=== PATIENT | female | born 1980 | race Caucasian/White ===

== ENCOUNTER → 2018-11-29 | Outpatient (CLI) | payer OTHER | END | disposition home or self-care (01) | LOC: CARD 12:55 | PROVIDERS: ATTEND Internal Medicine | DX: J44.9 Chronic obstructive pulmonary disease, unspecified (principal); M34.9 Systemic sclerosis, unspecified | CPT/HCPCS: 94060; 94726; 94729 ==

== ENCOUNTER → 2018-12-12 | Outpatient (CLI) | payer OTHER | END | disposition home or self-care (01) | LOC: CFH 10:28 | PROVIDERS: ATTEND Family Medicine | DX: N64.52 Nipple discharge (principal) | CPT/HCPCS: 76641; 77066; G0279 ==

== ENCOUNTER 2018-12-14 06:49 | Outpatient (CLI) | payer OTHER | END 2018-12-14 23:59 | disposition home or self-care (01) | LOC: CFH 06:49 → EDSTATUS 07:00 → CFH 23:59 | PROVIDERS: ATTEND Internal Medicine | DX: I07.1 Rheumatic tricuspid insufficiency (principal) | CPT/HCPCS: 93306 ==

== ENCOUNTER → 2018-12-26 | Outpatient (CLI) | payer OTHER ==
[~2018-12-26] MED LIST: GADOBUTROL 7.5 MMOL/7.5 ML VIAL ONE
== END | disposition home or self-care (01) ==
LOC: CFH 12:53
PROVIDERS: ATTEND Family Medicine
DX: N60.02 Solitary cyst of left breast (principal); N60.01 Solitary cyst of right breast
CPT/HCPCS: 82565; A9585; C8908; C8937

== ENCOUNTER → 2019-07-09 | Outpatient (CLI) | payer OTHER ==
[~2019-07-09] MED LIST changes: +AMLO10TA4 PO; +AMLO10TA8 PO; +ASPI-496 PO; +CHOL100011 PO; +FOLIC ACID PO; +GABA600T7 PO; -GADOBUTROL 7.5 MMOL/7.5 ML VIAL ONE; +MINO100C61 PO; +MORP30CA15 PO; +MYCO500T PO; +OMEP-110 PO; +OXYC-307 PO; +SERT100T32 PO; +SILD10SU2 PO
== END | disposition home or self-care (01) ==
LOC: EDSTATUS 06-18 14:30 → CARD 12:47
PROVIDERS: ATTEND Internal Medicine
DX: M34.9 Systemic sclerosis, unspecified (principal); Z87.891 Personal history of nicotine dependence
CPT/HCPCS: 94060; 94726; 94729

== ENCOUNTER 2019-08-18 18:24 | Observation (INO) | payer OTHER ==
[~2019-08-18] VITALS: Ht 160 cm; Wt 71.5 kg
--- NOTE | 2019-08-18 19:03 | NUR ---
Pt amb w/ steady gait to room from lobby at this time.
[2019-08-18] MEDS ORDERED: SODIUM CHLORIDE FLUSH 10ML SYR IVF ONE (19:30)
[2019-08-18] MEDS ORDERED: SODIUM CHLORIDE 0.9% 1,000ML IVBOLUS ONE (19:30)
[2019-08-18 19:34] LABS: BASOPHILS # (AUTO) 0.02 x10^3/uL (0-0.1); BASOPHILS % (AUTO) 0 % (0-1); EOSINOPHILS # (AUTO) 0.05 x10^3/uL (0-0.4); EOSINOPHILS % (AUTO) 1 % (1-7); LYMPHOCYTES # (AUTO) 0.72 x10^3/uL (1-3.4); LYMPHOCYTES % (AUTO) 7 % (22-44); MD NO; MEAN CORPUSCULAR HEMOGLOBIN 28.6 pg (27.0-34.8); MEAN CORPUSCULAR HGB CONC 32.9 g/dL (32.4-35.8); MEAN PLATELET VOLUME 7.9 fL (7.4-10.4); MONOCYTES # (AUTO) 0.39 x10^3/uL (0.2-0.8); MONOCYTES % (AUTO) 4 % (2-9); NEUTROPHILS # (AUTO) 9.53 x10^3/uL (1.8-6.8); NEUTROPHILS % (AUTO) 89 % (42-75); PLATELET COUNT 247 x10^3/uL (130-400); RED BLOOD COUNT 3.63 x10^6/uL (3.82-5.3); RED CELL DISTRIBUTION WIDTH 14.5 % (9.6-15.2)
[2019-08-18 19:45] LABS: ALANINE AMINOTRANSFERASE 19 U/L (12-78); ANION GAP 6 mmol/L (5-15); CALCIUM 7.7 mg/dL (8.5-10.1); CHLORIDE 103 mmol/L (98-107)
[2019-08-18 19:49] LABS: RAPID INFLUENZA A Negative (Negative); RAPID INFLUENZA B Negative (Negative)
[2019-08-18 19:50] LABS: ALKALINE PHOSPHATASE 86 U/L (45-117); BILIRUBIN,TOTAL 0.3 mg/dL (0.2-1.0); TOTAL PROTEIN 8.5 g/dL (6.4-8.2)
[2019-08-18] MEDS ORDERED: PIPERACILLIN/TAZO/PMX 3.375GM 50 ML IV ONE (20:30)
[2019-08-18] MEDS ORDERED: ACETAMINOPHEN 500 MG TABLET PO ONE (20:30)
[2019-08-18 20:36] LABS: MICROSCOPIC NOT IND
[2019-08-18 20:39] LABS: CULTURE INDICATED? NO
--- NOTE | 2019-08-18 20:40 | NUR ---
R chest power port accessed w/ 20 G 1 in bee needle, utilizing sterile technique and Malorie rn at bedside for asssistance.
--- NOTE | 2019-08-18 20:41 | NUR ---
Patient presents to ER c/o fever and nausea since . Patient has a hx of scleroderma and receives IV IG infusions 5x/month. She received on on and developed a fever afterward. She states she usually gets a fever, but not as high as it has been for this many consecutive days. Patient is in NAD. She has a port which she states can be accessed today, if need be. Respirations even and unlabored.
[2019-08-18] MEDS ORDERED: ONDANSETRON 2MG/ML, 2ML IVPush ONE (21:00)
[2019-08-18] MEDS ORDERED: PIPERACILLIN/TAZO/PMX 3.375GM 50 ML ONE (21:07)
[2019-08-18] MEDS ORDERED: ACETAMINOPHEN 500 MG TABLET ONE (21:07)
[2019-08-18] MEDS ORDERED: ONDANSETRON 2MG/ML, 2ML ONE (21:07)
--- NOTE | 2019-08-18 21:50 | NUR ---
Report given to Charmaine. Patient to be transferred to room 484-2.
[2019-08-18 22:39] VITALS: BP 104/68
[2019-08-18] MEDS: SILDENAFIL 20 MG TABLET PO SCH (23:00)
[2019-08-18] MEDS ORDERED: hydrALAzine 20 MG/ML, 1ML IVPush PRN (23:00)
[2019-08-18] MEDS: ENOXAPARIN 40 MG/0.4 ML SQ SCH (23:23)
[2019-08-18] MEDS: MONTELUKAST 10 MG TABLET PO SCH (23:23)
[2019-08-18] MEDS: GABAPENTIN 400 MG CAPSULE PO SCH (23:23)
[2019-08-18] MEDS: FAMOTIDINE 20 MG TABLET PO SCH (23:48)
[2019-08-18] MEDS: POTASSIUM CHLORIDE 20 MEQ in LACTATED RINGERS 1,000 ML IV SCH (23:48)
[2019-08-18] MEDS: morphine SULFATE 15 MG TAB.IR PO PRN (23:49)
[2019-08-19] MEDS ORDERED: POTASSIUM CHLORIDE 20 MEQ TAB.ER.PRT PO ONE (00:30)
[2019-08-19] MEDS ORDERED: MAGNESIUM SULFATE/D5W 100 ML IVPB ONE (00:30)
[2019-08-19] MEDS: PIPERACILLIN/TAZO/PMX 3.375GM 50 ML IV SCH ×4 (02:40→20:47)
[2019-08-19] MEDS: AZITHROMYCIN 500 MG in SODIUM CHLORIDE 0.9% 250 ML IV SCH (03:23)
[2019-08-19 03:30] VITALS: BP 94/60
[2019-08-19] MEDS: morphine SULFATE 15 MG TAB.IR PO PRN ×4 (04:06→23:30)
[2019-08-19] MEDS: ONDANSETRON 2MG/ML, 2ML IVPush PRN ×2 (04:06→16:11)
[2019-08-19] MEDS: DIPHENHYDRAMINE 25 MG CAPSULE PO PRN ×2 (04:11→16:58)
[2019-08-19] MEDS: ASPIRIN 325 MG TABLET EC PO SCH (05:28)
[2019-08-19 05:31] VITALS: BP 95/60
[2019-08-19 06:07] LABS: BASOPHILS # (AUTO) 0.01 x10^3/uL (0-0.1); BASOPHILS % (AUTO) 0 % (0-1); EOSINOPHILS # (AUTO) 0.34 x10^3/uL (0-0.4); EOSINOPHILS % (AUTO) 3 % (1-7); LYMPHOCYTES # (AUTO) 1.67 x10^3/uL (1-3.4); LYMPHOCYTES % (AUTO) 12 % (22-44); MD NO; MEAN CORPUSCULAR HEMOGLOBIN 28.1 pg (27.0-34.8); MEAN CORPUSCULAR HGB CONC 32.3 g/dL (32.4-35.8); MEAN CORPUSCULAR VOLUME 87.1 fL (80-100); MEAN PLATELET VOLUME 8.4 fL (7.4-10.4); MONOCYTES # (AUTO) 0.51 x10^3/uL (0.2-0.8); MONOCYTES % (AUTO) 4 % (2-9); NEUTROPHILS # (AUTO) 11.01 x10^3/uL (1.8-6.8); NEUTROPHILS % (AUTO) 81 % (42-75); PLATELET COUNT 235 x10^3/uL (130-400); RED BLOOD COUNT 3.36 x10^6/uL (3.82-5.3); RED CELL DISTRIBUTION WIDTH 15.2 % (9.6-15.2)
[2019-08-19 06:15] LABS: ANION GAP 3 mmol/L (5-15); CHLORIDE 111 mmol/L (98-107)
[2019-08-19 06:16] LABS: CREATININE 0.66 mg/dL (0.55-1.02)
[2019-08-19 06:49] VITALS: BP 94/63
[2019-08-19] MEDS: MAGNESIUM OXIDE 400 MG TABLET PO SCH (08:43)
[2019-08-19] MEDS: SENNA/DOCUSATE TABLET PO SCH (08:43)
[2019-08-19] MEDS: SERTRALINE 100MG TABLET PO SCH (08:43)
[2019-08-19] MEDS: OMEPRAZOLE 20 MG CAPSULE.DR PO SCH ×2 (08:43→16:58)
[2019-08-19] MEDS: AMLODIPINE 5 MG TABLET PO SCH (08:43)
[2019-08-19] MEDS: SILDENAFIL 20 MG TABLET PO SCH ×3 (08:43→20:46)
[2019-08-19] MEDS: FOLIC ACID 1 MG TABLET PO SCH (08:44)
[2019-08-19] MEDS: GABAPENTIN 400 MG CAPSULE PO SCH ×3 (08:44→20:46)
[2019-08-19] MEDS: FAMOTIDINE 20 MG TABLET PO SCH ×2 (10:18→20:45)
[2019-08-19 12:05] VITALS: BP 95/58
[2019-08-19] MEDS: POTASSIUM CHLORIDE 20 MEQ in LACTATED RINGERS 1,000 ML IV SCH ×2 (12:05→22:00)
[2019-08-19] MEDS: ACETAMINOPHEN 325 MG TABLET PO PRN ×2 (12:05→23:30)
--- NOTE | 2019-08-19 13:39 | NUR ---
REC: Reg/thins with extra sauce/gravy when appropriate; orange sheet not indicated Addendum: 08/19/19 at 1339 by Tika CURIEL Amended: Links added.
[2019-08-19 14:49] VITALS: BP 99/61
[2019-08-19] MEDS: PROMETHAZINE 25 MG/ML, 1ML IM PRN ×2 (17:18→22:02)
[2019-08-19 20:00] VITALS: BP 113/77
[2019-08-19] MEDS: MONTELUKAST 10 MG TABLET PO SCH (20:45)
[2019-08-19] MEDS: ENOXAPARIN 40 MG/0.4 ML SQ SCH (23:30)
[2019-08-20 02:28] VITALS: BP 101/66
[2019-08-20] MEDS: PIPERACILLIN/TAZO/PMX 3.375GM 50 ML IV SCH ×4 (02:32→19:35)
[2019-08-20] MEDS: DIPHENHYDRAMINE 25 MG CAPSULE PO PRN (02:39)
[2019-08-20] MEDS: AZITHROMYCIN 500 MG in SODIUM CHLORIDE 0.9% 250 ML IV SCH (04:11)
[2019-08-20] MEDS: morphine SULFATE 15 MG TAB.IR PO PRN ×3 (04:17→19:42)
[2019-08-20] MEDS: ASPIRIN 325 MG TABLET EC PO SCH (05:20)
[2019-08-20 06:28] LABS: BASOPHILS # (AUTO) 0.03 x10^3/uL (0-0.1); BASOPHILS % (AUTO) 0 % (0-1); EOSINOPHILS # (AUTO) 0.81 x10^3/uL (0-0.4); EOSINOPHILS % (AUTO) 11 % (1-7); LYMPHOCYTES # (AUTO) 2.05 x10^3/uL (1-3.4); LYMPHOCYTES % (AUTO) 28 % (22-44); MEAN CORPUSCULAR HEMOGLOBIN 27.9 pg (27.0-34.8); MEAN CORPUSCULAR HGB CONC 31.4 g/dL (32.4-35.8); MEAN CORPUSCULAR VOLUME 88.7 fL (80-100); MEAN PLATELET VOLUME 8.2 fL (7.4-10.4); MONOCYTES # (AUTO) 0.44 x10^3/uL (0.2-0.8); MONOCYTES % (AUTO) 6 % (2-9); NEUTROPHILS % (AUTO) 55 % (42-75); PLATELET COUNT 237 x10^3/uL (130-400); RED CELL DISTRIBUTION WIDTH 14.6 % (9.6-15.2)
[2019-08-20 06:39] LABS: ANION GAP 4 mmol/L (5-15); CALCIUM 8.1 mg/dL (8.5-10.1); CHLORIDE 108 mmol/L (98-107)
[2019-08-20 06:40] LABS: CREATININE 0.54 mg/dL (0.55-1.02)
[2019-08-20 07:10] LABS: MD NO
[2019-08-20 07:11] VITALS: BP 99/67
[2019-08-20 08:18] VITALS: BP 101/67
[2019-08-20] MEDS: MAGNESIUM OXIDE 400 MG TABLET PO SCH (08:19)
[2019-08-20] MEDS: SILDENAFIL 20 MG TABLET PO SCH ×5 (08:19→19:45)
[2019-08-20] MEDS: FOLIC ACID 1 MG TABLET PO SCH (08:19)
[2019-08-20] MEDS: SENNA/DOCUSATE TABLET PO SCH (08:19)
[2019-08-20] MEDS: GABAPENTIN 400 MG CAPSULE PO SCH ×3 (08:19→19:35)
[2019-08-20] MEDS: AMLODIPINE 5 MG TABLET PO SCH (08:19)
[2019-08-20] MEDS: OMEPRAZOLE 20 MG CAPSULE.DR PO SCH ×2 (08:19→16:22)
[2019-08-20] MEDS: SERTRALINE 100MG TABLET PO SCH (08:20)
[2019-08-20] MEDS: FAMOTIDINE 20 MG TABLET PO SCH ×2 (09:01→19:37)
[2019-08-20] MEDS: PROMETHAZINE 25 MG/ML, 1ML IM PRN ×2 (09:51→19:57)
[2019-08-20 14:12] VITALS: BP 119/83
[2019-08-20 18:34] VITALS: BP 106/70
[2019-08-20] MEDS: ACETAMINOPHEN 325 MG TABLET PO PRN (19:36)
[2019-08-20] MEDS: MONTELUKAST 10 MG TABLET PO SCH (19:37)
[2019-08-20] MEDS: ENOXAPARIN 40 MG/0.4 ML SQ SCH (23:28)
[2019-08-21 01:10] VITALS: BP 111/74
[2019-08-21] MEDS: PIPERACILLIN/TAZO/PMX 3.375GM 50 ML IV SCH ×2 (02:00→08:17)
[2019-08-21] MEDS: ACETAMINOPHEN 325 MG TABLET PO PRN (02:04)
[2019-08-21] MEDS: AZITHROMYCIN 500 MG in SODIUM CHLORIDE 0.9% 250 ML IV SCH (03:46)
[2019-08-21] MEDS: morphine SULFATE 15 MG TAB.IR PO PRN ×2 (03:52→08:20)
[2019-08-21] MEDS: ASPIRIN 325 MG TABLET EC PO SCH (06:16)
[2019-08-21 06:24] VITALS: BP 95/60
[2019-08-21 06:38] LABS: BASOPHILS # (AUTO) 0.04 x10^3/uL (0-0.1); BASOPHILS % (AUTO) 1 % (0-1); EOSINOPHILS # (AUTO) 0.74 x10^3/uL (0-0.4); EOSINOPHILS % (AUTO) 14 % (1-7); LYMPHOCYTES # (AUTO) 1.82 x10^3/uL (1-3.4); LYMPHOCYTES % (AUTO) 34 % (22-44); MD NO; MEAN CORPUSCULAR HEMOGLOBIN 27.8 pg (27.0-34.8); MEAN CORPUSCULAR HGB CONC 31.4 g/dL (32.4-35.8); MEAN CORPUSCULAR VOLUME 88.5 fL (80-100); MONOCYTES # (AUTO) 0.38 x10^3/uL (0.2-0.8); MONOCYTES % (AUTO) 7 % (2-9); NEUTROPHILS # (AUTO) 2.43 x10^3/uL (1.8-6.8); NEUTROPHILS % (AUTO) 45 % (42-75); PLATELET COUNT 279 x10^3/uL (130-400); RED BLOOD COUNT 3.33 x10^6/uL (3.82-5.3); RED CELL DISTRIBUTION WIDTH 14.9 % (9.6-15.2)
[2019-08-21 06:43] LABS: ANION GAP 5 mmol/L (5-15); CALCIUM 8.2 mg/dL (8.5-10.1); CHLORIDE 107 mmol/L (98-107); CREATININE 0.63 mg/dL (0.55-1.02)
[2019-08-21] MEDS: MAGNESIUM OXIDE 400 MG TABLET PO SCH (08:18)
[2019-08-21] MEDS ORDERED: MAGN400T50 PO (08:21)
[2019-08-21] MEDS: FOLIC ACID 1 MG TABLET PO SCH (08:21)
[2019-08-21] MEDS ORDERED: GABA600T7 PO (08:21)
[2019-08-21] MEDS ORDERED: FAMO20TA7 PO (08:21)
[2019-08-21] MEDS: GABAPENTIN 400 MG CAPSULE PO SCH (08:21)
[2019-08-21] MEDS ORDERED: CETI10CA PO (08:21)
[2019-08-21] MEDS ORDERED: AZIT500T10 PO (08:21)
[2019-08-21] MEDS ORDERED: MORP-52 PO (08:21)
[2019-08-21] MEDS ORDERED: MONT10TA9 PO (08:21)
[2019-08-21] MEDS ORDERED: ASPI-650 PO (08:21)
[2019-08-21] MEDS ORDERED: AMOX1TAB12 PO (08:21)
[2019-08-21] MEDS: AMLODIPINE 5 MG TABLET PO SCH (08:27)
[2019-08-21] MEDS ORDERED: FAMOTIDINE 40 MG TABLET ONE (08:36)
[2019-08-21] MEDS: SENNA/DOCUSATE TABLET PO SCH (08:40)
[2019-08-21] MEDS: OMEPRAZOLE 20 MG CAPSULE.DR PO SCH (08:40)
[2019-08-21] MEDS: FAMOTIDINE 20 MG TABLET PO SCH (08:41)
[2019-08-21] MEDS: SILDENAFIL 20 MG TABLET PO SCH (08:41)
[2019-08-21] MEDS: SERTRALINE 100MG TABLET PO SCH (08:42)
[2019-08-21] MEDS ORDERED: FLUC150T PO (10:21)
[2019-08-21] MEDS: PROMETHAZINE 25 MG/ML, 1ML IM PRN (10:28)
== END 2019-08-21 10:30 | disposition home or self-care (01) ==
LOC: ED 20:43 → EDIP 21:49 → INTOOBSV 21:49 → 4EST 22:37
PROVIDERS: ADMIT Family Medicine; ATTEND Family Medicine
DX: A41.9 Sepsis, unspecified organism (principal); J15.9 Unspecified bacterial pneumonia; E87.1 Hypo-osmolality and hyponatremia; K22.4 Dyskinesia of esophagus; I73.00 Raynaud's syndrome without gangrene; E87.6 Hypokalemia; K21.9 Gastro-esophageal reflux disease without esophagitis; G89.29 Other chronic pain; D64.9 Anemia, unspecified; M34.9 Systemic sclerosis, unspecified; E83.42 Hypomagnesemia; E66.3 Overweight; J30.2 Other seasonal allergic rhinitis; F39 Unspecified mood [affective] disorder; M33.20 Polymyositis, organ involvement unspecified; J32.9 Chronic sinusitis, unspecified; Z79.82 Long term (current) use of aspirin; Z79.899 Other long term (current) drug therapy; Z88.2 Allergy status to sulfonamides; Z88.6 Allergy status to analgesic agent
CPT/HCPCS: 36415; 71046; 74220; 74230; 80048; 80053; 81003; 83605; 83690; 83735; 84100; 84145; 84443; 84703; 85025; 87040; 87400; 92611; 96365; 96366; 96367; 96372; 96375; 96376; 99284; G0378; J0456; J1650; J2405; J2543; J2550; J3480; J7030; J7050; J7120; Q0163; 99285

== ENCOUNTER 2019-10-01 11:36 | Emergency (ER) | payer OTHER ==
[~2019-10-01] VITALS: Ht 162.6 cm; Wt 69.9 kg
[~2019-10-01 11:36] MED LIST changes: +AMOX1TAB12 PO; +ASPI-650 PO; +AZIT500T10 PO; +CETI10CA PO; +FAMO20TA7 PO; +FLUC150T PO; +MAGN400T50 PO; +MONT10TA11 PO; +MORP-52 PO
[2019-10-01] MEDS ORDERED: ONDANSETRON 2MG/ML, 2ML IVPush ONE (12:30)
[2019-10-01] MEDS ORDERED: SODIUM CHLORIDE 0.9% 1,000ML IVBOLUS ONE (12:30)
[2019-10-01] MEDS ORDERED: ONDANSETRON 2MG/ML, 2ML ONE (12:36)
[2019-10-01 12:51] LABS: RAPID INFLUENZA A Negative (Negative); RAPID INFLUENZA B Negative (Negative)
[2019-10-01 12:53] LABS: BASOPHILS # (AUTO) 0.01 x10^3/uL (0-0.1); BASOPHILS % (AUTO) 0 % (0-1); EOSINOPHILS # (AUTO) 0.05 x10^3/uL (0-0.4); EOSINOPHILS % (AUTO) 1 % (1-7); LYMPHOCYTES # (AUTO) 0.43 x10^3/uL (1-3.4); LYMPHOCYTES % (AUTO) 6 % (22-44); MD NO; MEAN CORPUSCULAR HEMOGLOBIN 27.7 pg (27.0-34.8); MEAN CORPUSCULAR HGB CONC 32.5 g/dL (32.4-35.8); MEAN CORPUSCULAR VOLUME 85.2 fL (80-100); MEAN PLATELET VOLUME 8.3 fL (7.4-10.4); MONOCYTES # (AUTO) 0.09 x10^3/uL (0.2-0.8); MONOCYTES % (AUTO) 1 % (2-9); NEUTROPHILS # (AUTO) 6.98 x10^3/uL (1.8-6.8); NEUTROPHILS % (AUTO) 92 % (42-75); PLATELET COUNT 340 x10^3/uL (130-400); RED BLOOD COUNT 3.76 x10^6/uL (3.82-5.3); RED CELL DISTRIBUTION WIDTH 15.2 % (9.6-15.2)
[2019-10-01 13:04] LABS: ALBUMIN 3.3 g/dL (3.4-5.0); ANION GAP 8 mmol/L (5-15); CALCIUM 8.5 mg/dL (8.5-10.1); CHLORIDE 106 mmol/L (98-107); CREATININE 0.59 mg/dL (0.55-1.02)
[2019-10-01] MEDS ORDERED: MORPHINE SULFATE 4 MG/ML, 1ML IVPush PRN (13:30)
--- NOTE | 2019-10-01 13:30 | NUR ---
RIGHT CHEST PORT ACCESSED-FROM WHICH 1 SET OF BLOOD CULTURES OBTAINED PATIENT THEN MEDICATED PER EMAR WITH ANTIEMETIC & 1L NS BOLUS REPORT TO FAUSTINO LAGOS
[2019-10-01] MEDS ORDERED: MORPHINE SULFATE 4 MG/ML, 1ML ONE (13:34)
[2019-10-01] MEDS ORDERED: ACETAMINOPHEN 325 MG TABLET ONE (13:42)
[2019-10-01] MEDS ORDERED: ACETAMINOPHEN 325 MG TABLET PO ONE (14:00)
[2019-10-01] MEDS ORDERED: SILD20TA PO (14:19)
--- NOTE | 2019-10-01 14:50 | NUR ---
WITH REASSESSMENT PAIN/NAUSEA IMPROVED TO 0/10 1L NS BOLUS COMPLETE PROVIDER TO BEDSIDE-TO ADMIN ABX THEN D/C
[2019-10-01] MEDS ORDERED: DOXYCYCLINE 100 MG in DEXTROSE 5% 250 ML IV ONE (15:00)
--- NOTE | 2019-10-01 15:21 | NUR ---
After clarification that 2 sets of blood cultures drawn-medicated per emar (abx infusion)
[2019-10-01] MEDS ORDERED: FAMOTIDINE 20 MG TABLET PO ONE (15:30)
[2019-10-01] MEDS ORDERED: PROMETHAZINE 25 MG/ML, 1ML IM ONE (16:00)
[2019-10-01] MEDS ORDERED: FAMOTIDINE 20 MG TABLET ONE (16:02)
[2019-10-01 16:51] VITALS: BP 122/72
== END 2019-10-01 16:56 | disposition home or self-care (01) ==
LOC: ED 14:45
DX: J18.9 Pneumonia, unspecified organism (principal); R11.2 Nausea with vomiting, unspecified
CPT/HCPCS: 36415; 71046; 80048; 82040; 83605; 85025; 87040; 87400; 96361; 96365; 96372; 96375; 99284; J2270; J2405; J2550; J7030; J7060

== ENCOUNTER → 2019-10-21 | Outpatient (CLI) | payer OTHER ==
[~2019-10-21] MED LIST changes: +SILD20TA PO
== END | disposition home or self-care (01) ==
LOC: CFH 06:50
PROVIDERS: ATTEND Internal Medicine
DX: M34.9 Systemic sclerosis, unspecified (principal)
CPT/HCPCS: 93306

== ENCOUNTER 2019-11-28 18:50 | Inpatient (IN) | payer OTHER ==
[~2019-11-28] VITALS: Ht 162.1 cm; Wt 72.3 kg
--- NOTE | 2019-11-28 19:50 | NUR ---
PT AMB TO ROOM FROM LOBBY WITH STEADY GAIT GLORIA
--- NOTE | 2019-11-28 19:51 | NUR ---
AT BEDSIDE TO ASSESS PT AT THIS TIME
--- NOTE | 2019-11-28 19:58 | NUR ---
THIS IS A 39Y F THAT COMES IN TONIGHT FOR WEAKNESS AND SOB X4 DAYS. PT STS SHE HAS BEEN FELEING LIKE SHE NEEDS TO TAKE A BREAK DURING NORMAL DAILY ACTIVITIES. PT GOT INFUION IN [place] LAST WED. PT STS IT HASNT HELPED, RECENT LABS FROM HOME DRAW SHOWED LOW HGB. 2WKS AGO.
[2019-11-28] MEDS ORDERED: SODIUM CHLORIDE FLUSH 10ML SYR IVF ONE (20:00)
[2019-11-28 21:07] LABS: BASOPHILS # (AUTO) 0.02 x10^3/uL (0-0.1); BASOPHILS % (AUTO) 0 % (0-1); EOSINOPHILS # (AUTO) 0.33 x10^3/uL (0-0.4); EOSINOPHILS % (AUTO) 3 % (1-7); LYMPHOCYTES # (AUTO) 1.51 x10^3/uL (1-3.4); LYMPHOCYTES % (AUTO) 15 % (22-44); MD NO; MEAN CORPUSCULAR HEMOGLOBIN 27.8 pg (27.0-34.8); MEAN CORPUSCULAR HGB CONC 31.6 g/dL (32.4-35.8); MEAN CORPUSCULAR VOLUME 87.9 fL (80-100); MEAN PLATELET VOLUME 7.9 fL (7.4-10.4); MONOCYTES # (AUTO) 0.55 x10^3/uL (0.2-0.8); MONOCYTES % (AUTO) 6 % (2-9); NEUTROPHILS # (AUTO) 7.65 x10^3/uL (1.8-6.8); NEUTROPHILS % (AUTO) 76 % (42-75); PLATELET COUNT 392 x10^3/uL (130-400); RED BLOOD COUNT 2.66 x10^6/uL (3.82-5.3); RED CELL DISTRIBUTION WIDTH 21.8 % (9.6-15.2)
--- NOTE | 2019-11-28 21:10 | NUR ---
PT PROVIDED WITH A BLANKET REQUESTED.
[2019-11-28 21:19] LABS: ALANINE AMINOTRANSFERASE 16 U/L (12-78); ANION GAP 5 mmol/L (5-15); CALCIUM 8.1 mg/dL (8.5-10.1); CHLORIDE 105 mmol/L (98-107); CREATININE 0.61 mg/dL (0.55-1.02)
[2019-11-28] MEDS ORDERED: LORazepam 1MG TABLET ONE (21:22)
[2019-11-28 21:23] LABS: ALKALINE PHOSPHATASE 89 U/L (45-117); BILIRUBIN,TOTAL 0.2 mg/dL (0.2-1.0); TOTAL PROTEIN 7.3 g/dL (6.4-8.2)
[2019-11-28 21:26] LABS: TROPONIN I 0.121 ng/mL (0.000-0.045)
[2019-11-28] MEDS ORDERED: LORazepam 1MG TABLET PO ONE (21:30)
[2019-11-28] MEDS ORDERED: ASPIRIN 81 MG TABLET CHEW ONE (21:42)
[2019-11-28] MEDS ORDERED: ASPIRIN 81 MG TABLET CHEW PO ONE (22:00)
--- NOTE | 2019-11-28 22:24 | NUR ---
REPORT TO FLOOR RN, PT READY FOR TRANSPORT TO [facility]
--- NOTE | 2019-11-28 22:30 | NUR ---
PT IN CT AT THIS TIME, PT TO FLOOR WHEN FINISHED.
--- NOTE | 2019-11-28 22:36 | NUR ---
PT BACK FROM [facility] HOSPITALIST TO SEE PRIOR TO TRANSPORT TO FLOOR
[2019-11-28] MEDS ORDERED: OMNIPAQUE 350 MG/ML, 75ML BOTTLE ONE (22:46)
[2019-11-28] MEDS ORDERED: MONTELUKAST 10 MG TABLET PO SCH (23:00)
[2019-11-28 23:41] VITALS: BP 93/56
[2019-11-29] MEDS ORDERED: SILD20TA2 PO (00:19)
[2019-11-29] MEDS ORDERED: HYDR-826 PO (00:19)
[2019-11-29] MEDS ORDERED: MORP-30 PO (00:19)
[2019-11-29] MEDS ORDERED: FOLI-17 PO (00:19)
[2019-11-29] MEDS ORDERED: MORP15TA PO (00:19)
[2019-11-29] MEDS ORDERED: ALPR0.5T6 PO (00:19)
[2019-11-29] MEDS ORDERED: AMLO2.5T5 PO (00:19)
[2019-11-29] MEDS ORDERED: FLUT16SP24 NS (00:19)
[2019-11-29] MEDS ORDERED: DICL100G29 TD (00:19)
[2019-11-29] MEDS ORDERED: SERT-238 PO (00:19)
[2019-11-29] MEDS ORDERED: PREN1TAB10 PO (00:19)
[2019-11-29] MEDS ORDERED: OMEP20CA20 PO (00:19)
[2019-11-29] MEDS ORDERED: ONDA8TAB16 PO (00:19)
[2019-11-29] MEDS: OMEPRAZOLE 20 MG CAPSULE.DR PO SCH ×2 (00:37→09:42)
[2019-11-29] MEDS: morphine SULFATE 15 MG TAB.IR PO PRN ×2 (00:50→11:51)
[2019-11-29] MEDS: SILDENAFIL MC SCH ×2 (01:00→09:00)
[2019-11-29] MEDS: GABAPENTIN 300 MG CAPSULE PO SCH ×4 (01:08→14:41)
[2019-11-29] MEDS: HEPARIN 5,000 UNITS/ML, 1ML SQ SCH ×2 (01:56→09:42)
[2019-11-29] MEDS ORDERED: SODIUM CHLORIDE 0.9% 1,000 ML IV SCH (02:00)
[2019-11-29] MEDS ORDERED: POLYETHYLENE GLYCOL 17 GM PACKET PO PRN (02:00)
[2019-11-29] MEDS ORDERED: AZITHROMYCIN 500 MG in SODIUM CHLORIDE 0.9% 250 ML IV SCH (02:00)
[2019-11-29] MEDS ORDERED: ONDANSETRON 2MG/ML, 2ML IVPush PRN (02:00)
[2019-11-29] MEDS ORDERED: ACETAMINOPHEN 325 MG TABLET PO PRN (02:00)
[2019-11-29] MEDS ORDERED: CEFTRIAXONE PMX 1GM/50ML 50 ML IV SCH (02:00)
[2019-11-29] MEDS ORDERED: BISACODYL 10 MG SUPP PR PRN (02:00)
[2019-11-29] MEDS ORDERED: NITROGLYCERIN 0.4 MG/SPRAY SL PRN (02:30)
[2019-11-29 05:28] LABS: TROPONIN I 0.098 ng/mL (0.000-0.045)
[2019-11-29] MEDS ORDERED: ASPIRIN 325 MG TABLET EC PO SCH (06:00)
[2019-11-29] MEDS ORDERED: FAMO-79 PO (06:42)
[2019-11-29] MEDS ORDERED: GABA600T PO (06:50)
[2019-11-29 07:05] VITALS: BP 92/61
[2019-11-29] MEDS ORDERED: AMLODIPINE 5 MG TABLET PO SCH (09:00)
[2019-11-29] MEDS ORDERED: FAMOTIDINE 20 MG TABLET PO SCH (09:00)
[2019-11-29] MEDS ORDERED: SILDENAFIL 20 MG TABLET PO SCH ×3 (09:00→16:00)
[2019-11-29] MEDS ORDERED: CHOLECALCIFEROL 1,000 UNIT TABLET PO SCH (09:00)
[2019-11-29] MEDS ORDERED: SERTRALINE 100MG TABLET PO SCH (09:00)
[2019-11-29] MEDS ORDERED: MAGNESIUM OXIDE 400 MG TABLET PO SCH (09:00)
[2019-11-29] MEDS ORDERED: FOLIC ACID 1 MG TABLET PO SCH (09:00)
[2019-11-29] MEDS ORDERED: SENNA/DOCUSATE TABLET PO SCH (09:00)
[2019-11-29] MEDS: CETIRIZINE 10 MG TABLET PO SCH ×2 (09:42→14:41)
[2019-11-29] MEDS ORDERED: SILDENAFIL 10MG/12.5ML IVPush SCH (10:00)
[2019-11-29] MEDS ORDERED: morphine SULFATE 15 MG TAB.IR PO PRN (12:30)
[2019-11-29 12:45] LABS: TROPONIN I 0.087 ng/mL (0.000-0.045)
[2019-11-29] MEDS ORDERED: CEFD300C37 PO (14:10)
[2019-11-29] MEDS ORDERED: AZIT250T PO (14:10)
[2019-11-29 14:31] VITALS: BP 91/60
[2019-11-29 16:30] VITALS: BP 90/60
[2019-11-30] MEDS ORDERED: SODIUM CHLORIDE 0.9% 1,000 ML IV SCH (02:00)
== END 2019-11-29 17:49 | disposition home or self-care (01) | DRG 871 ==
LOC: ED 21:32 → EDIP 22:07 → 5SO 23:32 → 4NW 11-29 10:59
PROVIDERS: ATTEND Internal Medicine
PROC: 30233N1 Transfusion of Nonautologous Red Blood Cells into Peripheral Vein, Percutaneous Approach (ICD-10-PCS; principal; 2019-11-29)
DX: A41.9 Sepsis, unspecified organism (principal); J18.9 Pneumonia, unspecified organism; M33.20 Polymyositis, organ involvement unspecified; D50.9 Iron deficiency anemia, unspecified; E88.09 Other disorders of plasma-protein metabolism, not elsewhere classified; G89.29 Other chronic pain; I73.00 Raynaud's syndrome without gangrene; K21.9 Gastro-esophageal reflux disease without esophagitis; K22.4 Dyskinesia of esophagus; M34.9 Systemic sclerosis, unspecified; Z88.2 Allergy status to sulfonamides; Z20.828 Contact with and (suspected) exposure to other viral communicable diseases
CPT/HCPCS: 36415; 71045; 71275; 74018; 76700; 80053; 83605; 83880; 84145; 84484; 84703; 85025; 86850; 86900; 86923; 87040; 93005; 99285; G0378; J0456; J0696; J1644; Q9967; J7030; J7050; P9016; U0001